=== PATIENT | male | born 1955 | race Caucasian/White ===

== ENCOUNTER 2021-07-28 10:55 | Outpatient (CLI) | payer OTHER, SELFPAY ==
--- NOTE | 2021-07-28 11:28 | CT_ITS ---
WS: [id number] CT ABDOMEN CONTRAST TECHNIQUE: Contrast enhanced CT of the abdomen with coronal and sagittal reformatted images. CLINICAL INFORMATION: LUQ ABDOMINAL PAIN COMPARISON: None. DLP: 940.[address] scans at [facility] use at least one of these dose optimization techniques: automated e xposure control; mA and/or kV adjustment per patient size (includes targeted exams where dose is matc hed to clinical indication); or iterative reconstruction. FINDINGS: Chronic emphysematous changes in the lung bases. Subsegmental atelectasis RIGHT lower lobe. A few sma ll nodules in RIGHT greater than LEFT lower lobe measuring 5 to 6 mm. Calcified granuloma RIGHT lower lobe. Numerous low-attenuation hepatic cysts within the liver the largest measuring 7-8mm. Normal po rtal vein and splenic vein. Normal GE junction. Normal spleen. Normal renal parenchymal enhancement. No hydronephrosis. LEFT upper pole renal cyst measuring 3.2 x 4.1 CM. Smaller RIGHT renal cyst. Celiac and SMA appear pa tent. Moderate aortic calcification. Slightly aneurysmal infrarenal abdominal aorta measuring 1.9 x 2 .1 cm AP by transverse. 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 Otherwise normal pancreatic parenchymal enhancement. Gallbladder is decompressed. Delayed images demonstrate normal proximal ureteral excretion. Proximal ureters are normal. Visualize d small bowel in the LEFT upper quadrant is normal in appearance. No other suspicious findings. Mild disc bulging L1-L2, L3-L4, L4-L5. Disc desiccation L5-S1. CT/CT abdomen w con* [id number] IMPRESSION: 1. Numerous small hepatic cysts within the liver the largest measuring 7 mm. 2. LEFT upper pole renal cyst measuring 4.1 x 3.2 CM. 3. Pancreatic calcifications likely due to chronic pancreatitis. Recommend cor relation with clinical history. 4. A few Small subcentimeter nodules in the lung bases the largest measuring 5 to 6 mm. This can be followed up with chest CT. 5. Moderate aortic calcification with slightly aneurysmal infrarenal abdominal aorta measuring 1.9 x 2.1 CM. 6. No other acute findings.
[2021-07-28] MEDS: iohexol 300 mg/mL 100 mL Btl IV (12:56)
[2021-07-28 13:00] LABS: Blood Urea Nitrogen 14 mg/dL (8-23); Glomerular Filtration Rate 112.5 mL/min (90-130)
== END 2021-07-28 10:56 | disposition home or self-care (01) ==
PROVIDERS: Visit Provider Nurse Practitioner Family
DX: R10.12 Left upper quadrant pain (principal); K76.89 Other specified diseases of liver; K86.89 Other specified diseases of pancreas; I71.4 Abdominal aortic aneurysm, without rupture
CPT/HCPCS: 74160; 82565; 84520

== ENCOUNTER 2022-01-18 15:45 | Emergency (ER) | payer SELFPAY ==
[2022-01-18] VITALS (15 sets, daily range): BP systolic 118–165; BP diastolic 72–96; PULSE 81–107; RESP 11–32; TEMP 36.8; O2SAT 88–97; BMI 15.5
--- NOTE | 2022-01-18 16:06 | ECG_ITS ---
[facility] Test Date: 2022-01-18 Pat Name: Chau Andrade Department: Room: Gender: Male [employer]: : [id number] Requested By: Donovan Phelps Order Number: [id number] Hayden MD: Caryn Plaza M.D. Measurements Intervals [place] Rate: 96 P: 89 RI: 143 QRS: -71 QRSD: 97 T: 95 QT: 338 QTc: 429 Interpretive Statements SINUS RHYTHM RIGHT ATRIAL ENLARGEMENT [0.3mV P-WAVE] POSSIBLE LEFT ATRIAL ENLARGEMENT [-0.1mV P-WAVE IN V1/V2] LEFT AXIS DEVIATION [QRS AXIS < -30] POSSIBLE RIGHT VENTRICULAR CONDUCTION DELAY [RSR (QR) IN V1/V2] ANTEROSEPTAL MYOCARDIAL INFARCTION , OF INDETERMINATE AGE [40+ ms Q WAVE IN V1-V4] No previous ECG available for comparison Electronically Signed On 01-18-2022 18:06:30 BREAD ROOM HAND by Caryn Plaza M.D. [id number]
--- NOTE | 2022-01-18 16:21 | XRR_ITS ---
PROCEDURE INFORMATION: Exam: XR Chest Exam date and time: 01/18/2022 5:28 PM Age: 67 years old Clinical indication: Cough and shortness of breath TECHNIQUE: Imaging protocol: Radiologic exam of the chest. Views: 1 view. COMPARISON: CT abdomen w con* [id number] 07/28/2021 12:49 PM FINDINGS: Lungs: Emphysema. Calcified granuloma in the left upper lobe. Minimal atelectasis or scarring in the lung bases. The lungs are otherwise clear. Pleural spaces: Unremarkable. No pleural effusion. No pneumothorax. Heart/Mediastinum: Unremarkable. No cardiomegaly. Bones/joints: Unremarkable. XR/XR chest 1V portable [id number] IMPRESSION: No acute findings.
--- NOTE | 2022-01-18 16:34 | W.ED.SOB ---
Documented by User: Cara Alejandro MD 01/18/22 17:45 HPI - SOB/Dyspnea General: Chief Complaint: Shortness of Breath/Dyspnea Stated Complaint: SOB Time Seen by Provider: 01/18/22 16:17 History of Present Illness: HPI Narrative: 59-year-old male who presents with shortness of breath. The patient states he was hospitalized in the past with pneumonia and subsequent to that hospitalization was placed on oxygen. He states he recently has not had his oxygen because his ex- refused to pay for it. He has had several days of increasing shortness of breath with associated wheezing. He has been using his albuterol inhaler occasionally with some improvement. He complains of shortness of breath as well as wheezing. He denies cough or fever. He denies leg swelling. Associated symptoms: Deny chest congestion, chest pain, fever(s) or vomiting Review of Systems Const: Denies: fever(s) or chills Eyes: Denies: change in vision ENMT: Denies: nasal discharge or nasal congestion Card: Denies: chest pain or swelling of feet/ankles Resp: Reports: dyspnea and wheezing; Denies: non-productive cough or chest congestion GI: Denies: vomiting or diarrhea Musc: Denies: extremity swelling Skin/Breast: Denies: rash Neuro: Denies: headache(s) Physical Exam Const: COMMON NORMALS: patient oriented x3 OTHER: Patient appears to be moderately short of breath. He is able to speak in full sentences. He is using his accessory muscles for breathing. HENMT: COMMON NORMALS: normocephalic, atraumatic and moist oral mucous membranes HEAD & SCALP: normocephalic and atraumatic Eye: COMMON NORMALS: Equal, round and reactive pupils present, EOMs intact bilaterally and no scleral icterus PUPIL: Yes Equal, round and reactive pupils present Neck/C-Spine: OTHER: Trachea midline Resp: OTHER: Patient is in moderate respiratory distress. He is using his accessory muscles to breathe. Decreased breath sounds in all lung garcia with diffuse expiratory wheezes. Cardio: OTHER: Tachycardic GI: OTHER: Abdomen is soft, nontender nondistended. Extremity: OTHER: There is no extremity edema or tenderness. Neuro: COMMON NORMALS: patient oriented x3 Skin: OTHER: No rash noted Course Reevaluation(s): Reevaluation #1: Patient is feeling much better after IV Solu-Medrol and the first nebulizer treatment. He does continue to have expiratory wheezes in the lung bases. We will repeat his nebulizer treatment and then try him on room air off oxygen. Chest x-ray shows no infiltrate. Laboratory studies are pending at this time. Vital Signs: Vital signs: Vital Signs Temperature 98.3 F 01/18/22 15:59 Pulse Rate 90 01/18/22 18:19 Respiratory Rate 20 H 01/18/22 18:19 Blood Pressure 118/79 01/18/22 18:15 Pulse Oximetry 91 01/18/22 18:19 Oxygen Delivery Me thod 01/18/22 18:19 Oxygen Flow Rate 2 01/18/22 18:19 MDM - SOB/Dyspnea Medical Decision Making 59-year-old male with a history of COPD who presents with a 2 to 3-day history of increasing shortness of breath with associated wheezing. The patient presents, short of breath, using his accessory muscles for breathing. Room air saturation 91%. We will start an IV, give him IV Solu-Medrol give him nebulizer treatments. Will obtain a chest x-ray and laboratory studies. Lab Data 01/18/22 16:42 01/18/22 17:10 Labs/Radiology: Radiology Impressions Chest X-Ray 01/18/22 16:21 IMPRESSION: No acute findings. Laboratory Results WBC 8.0 10^3/uL (4.0-10.0) 01/18/22 16:42 RBC 4.52 10^6/uL (4.1-5.3) 01/18/22 16:42 Hgb 14.5 g/dL (11.7-16.6) 01/18/22 16:42 Hct 44.4 % (42.0-52.0) 01/18/22 16:42 MCV 98.2 fl (80-94) H 01/18/22 16:42 MCH 32.1 pg (28.0-34.0) 01/18/22 16:42 MCHC 32.7 g/dL (30.0-36.0) 01/18/22 16:42 RDW 12.6 % (12.1-15.1) 01/18/22 16:42 Plt Count 277 10^3/cmm (130-400) 01/18/22 16:42 MPV 9.2 fL (7.4-10.4) 01/18/22 16:42 Neut % (Auto) 78.1 % 01/18/22 16:42 Lymph % (Auto) 8.6 % 01/18/22 16:42 [place] % (Auto) 6.5 % 01/18/22 16:42 Eos % (Auto) 5.5 % 01/18/22 16:42 Baso % (Auto) 0.9 % 01/18/22 16:42 Neut # (Auto) 6.24 10^3/uL (1.8-7.7) 01/18/22 16:42 Lymph # (Auto) 0.7 10^3/uL (0.8-4.8) L 01/18/22 16:42 [place] # (Auto) 0.5 10^3/uL (0.2-0.9) 01/18/22 16:42 Eos # (Auto) 0.4 10^3/uL (0.0-0.8) 01/18/22 16:42 Baso # (Auto) 0.1 10^3/uL (0.0-0.1) 01/18/22 16:42 Nucleated RBC % (auto) 0 % 01/18/22 16:42 Nucleated RBCs # 0.0 /100WBC 01/18/22 16:42 Sodium 141 mmol/L (136-145) 01/18/22 17:10 Potassium 3.9 mmol/L (3.5-5.1) 01/18/22 17:10 Chloride 100 mmol/L (98-107) 01/18/22 17:10 Carbon Dioxide 34 mmol/L (22-29) H 01/18/22 17:10 Anion Gap 10.9 (5-19) 01/18/22 17:10 BUN 16 mg/dL (8-23) 01/18/22 17:10 Creatinine 0.8 mg/dL (0.7-1.2) 01/18/22 17:10 GFR Calculation 96.1 mL/min (90-130) 01/18/22 17:10 Glucose 184 mg/dL (65-115) H 01/18/22 17:10 Calculated Osmolality 298 mOsm/kg (285-295) H 01/18/22 17:10 Calcium 9.0 mg/dL (8.5-10.5) 01/18/22 17:10 Total Bilirubin 0.2 mg/dL (0.15-1.2) 01/18/22 17:10 AST 11 U/L (0-40) 01/18/22 17:10 ALT < 5 U/L (0-41) 01/18/22 17:10 Alkaline Phosphatase 94 U/L (40-130) 01/18/22 17:10 NT-Pro-B Natriuret Pep 268 pg/mL (0-125) H 01/18/22 17:10 Total Protein 6.8 g/dL (6.6-8.7) 01/18/22 17:10 Albumin 3.9 g/dL (3.5-5.2) 01/18/22 17:10 Globulin 2.9 g/dL (1.3-4.6) 01/18/22 17:10 Nasal Influ A H1 2009 PCR Not detected (NOT DETECT) 01/18/22 16:42 Coronavirus 229E (PCR) Not detected (NOT DETECT) 01/18/22 16:42 Influenza A (H1) PCR Not detected (NOT DETECT) 01/18/22 16:42 Influenza A (H3) PCR Not detected (NOT DETECT) 01/18/22 16:42 Influenza Type A (PCR) Not detected (NOT DETECT) 01/18/22 16:42 Influenza Type B (PCR) Not detected (NOT DETECT) 01/18/22 16:42 SARS-CoV-2 (PCR) Not detected (NOT DETECT) 01/18/22 16:42 Discharge Plan Discharge Patient Disposition: Home Clinical Impression: Acute exacerbation of chronic obstructive airways disease Condition: Stable Prescriptions: New prednisone 50 mg tablet 50 mg PO DAILY 7 Days Qty: 7 0RF Symbicort 80-4.5 mcg/actuation HFA aerosol inhaler 1 puff inhalation BID Qty: 10.2 0RF ProAir HFA 90 mcg/actuation HFA aerosol inhaler 2 inh inhalation Q4H PRN (Reason: shortness of breath or wheezing) Qty: 8.5 0RF Rx Instructions: until breathing returns to target peak flow/parameters Discharge Orders: Discharge ED (Routine); Ordered 01/18/22 Ordered By: Everette Magallanes Other Ambulatory Orders: DME: Oxygen (Order) Location: None Selected Ordered By: Everette Magallanes Discharge Diet: Advance as tolerated Discharge Activity: Resume usual activity Patient Instructions: COPD (Chronic Obstructive Pulmonary Disease) (DC) Coding Level of Care Code ED Heel Boom Operator for Chg Fwd Exam Expanded Problem Focused Documented by User: Everette Magallanes MD 01/18/22 18:58 HPI - SOB/Dyspnea General: Chief Complaint: Shortness of Breath/Dyspnea Stated Complaint: SOB Time Seen by Provider: 01/18/22 16:17 Course Vital Signs: Vital signs: Vital Signs Temperature 98.3 F 01/18/22 15:59 Pulse Rate 90 01/18/22 18:19 Respiratory Rate 20 H 01/18/22 18:19 Blood Pressure 118/79 01/18/22 18:15 Pulse Oximetry 91 01/18/22 18:19 Oxygen Delivery Me thod 01/18/22 18:19 Oxygen Flow Rate 2 01/18/22 18:19 MDM - SOB/Dyspnea Medical Decision Making 59-year-old male with a history of COPD who presents with a 2 to 3-day history of increasing shortness of breath with associated wheezing. The patient presents, short of breath, using his accessory muscles for breathing. Room air saturation 91%. We will start an IV, give him IV Solu-Medrol give him nebulizer treatments. Will obtain a chest x-ray and laboratory studies. Patient presents for COPD exacerbation he supposed to be on 2 L of oxygen at home we will set him up with home oxygen again he is well-appearing here his oxygen is 96% here on 2 L x-ray shows no pneumonia his flu and COVID are negative he is stable for discharge. Lab Data 01/18/22 16:42 01/18/22 17:10 Labs/Radiology: Radiology Impressions Chest X-Ray 01/18/22 16:21
[2022-01-18] MEDS: ipratropium-albuterol 3 mL Neb INHALATION ×2 (16:49→18:15)
[2022-01-18 16:56] LABS: Basophils # 0.1 10^3/uL (0.0-0.1); Basophils % 0.9 %; Eosinophils # 0.4 10^3/uL (0.0-0.8); Eosinophils % 5.5 %; Hematocrit 44.4 % (42.0-52.0); Hemoglobin 14.5 g/dL (11.7-16.6); Lymphocytes # 0.7 10^3/uL (0.8-4.8); Lymphocytes % 8.6 %; Mean Corpuscular HGB Conc 32.7 g/dL (30.0-36.0); Mean Corpuscular Hemoglobin 32.1 pg (28.0-34.0); Mean Corpuscular Volume 98.2 fl (80-94); Mean Platelet Volume 9.2 fL (7.4-10.4); Monocytes # 0.5 10^3/uL (0.2-0.9); Monocytes % 6.5 %; Neutrophils # 6.24 10^3/uL (1.8-7.7); Neutrophils % 78.1 %; Nucleated Red Blood Cells % 0 %; Platelet Count 277 10^3/cmm (130-400); Red Blood Count 4.52 10^6/uL (4.1-5.3); Red Cell Distribution Width 12.6 % (12.1-15.1)
[2022-01-18 17:48] LABS: Alanine Aminotransferase < 5 U/L (0-41); Albumin Level 3.9 g/dL (3.5-5.2); Alkaline Phosphatase 94 U/L (40-130); Anion Gap 10.9 (5-19); Aspartate Amino Transferase 11 U/L (0-40); Blood Urea Nitrogen 16 mg/dL (8-23); Carbon Dioxide 34 mmol/L (22-29); Chloride 100 mmol/L (98-107); Globulin 2.9 g/dL (1.3-4.6); Glomerular Filtration Rate 96.1 mL/min (90-130); Glucose 184 mg/dL (65-115); NT Pro B Type Natriuretic Pept 268 pg/mL (0-125); Osmolality Calculated 298 mOsm/kg (285-295); Potassium 3.9 mmol/L (3.5-5.1); Sodium 141 mmol/L (136-145); Total Bilirubin 0.2 mg/dL (0.15-1.2); Total Protein 6.8 g/dL (6.6-8.7)
[2022-01-18 18:41] LABS: Adenovirus Not Detected (NOT DETECT); Chlamydia Pneumoniae Not Detected (NOT DETECT); Coronavirus 229E,HKU1,NL63,OC4 Not Detected (NOT DETECT); Human Metapneumovirus Not Detected (NOT DETECT); Human Rhinovirus/Enterovirus Not Detected (NOT DETECT); Influenza A Not Detected (NOT DETECT); Influenza A H1 Not Detected (NOT DETECT); Influenza A H1-2009 Not Detected (NOT DETECT); Influenza A H3 Not Detected (NOT DETECT); Influenza B Not Detected (NOT DETECT); Mycoplasma Pneumoniae Not Detected (NOT DETECT); Parainfluenza Virus Type 1 Not Detected (NOT DETECT); Parainfluenza Virus Type 2 Not Detected (NOT DETECT); Parainfluenza Virus Type 3 Not Detected (NOT DETECT); Parainfluenza Virus Type 4 Not Detected (NOT DETECT); Respiratory Syncytial Virus A Not Detected (NOT DETECT); Respiratory Syncytial Virus B Not Detected (NOT DETECT); SARS-COV-2 Not Detected (NOT DETECT)
--- NOTE | 2022-01-18 18:44 | PC.NURSE ---
report given to JUDSON Tatum to assume care
[2022-01-18 18:52] LABS: Influenza A Not Detected (NOT DETECT); Influenza A H1 Not Detected (NOT DETECT); Influenza A H1-2009 Not Detected (NOT DETECT); Influenza A H3 Not Detected (NOT DETECT); Influenza B Not Detected (NOT DETECT); Results from GEN
== END 2022-01-18 20:15 | disposition home or self-care (01) ==
PROVIDERS: Emergency Medicine; Emergency Provider Emergency Medicine
DX: J44.1 Chronic obstructive pulmonary disease with (acute) exacerbation (principal); Z91.190 Patient's noncompliance with other medical treatment and regimen due to financial hardship
CPT/HCPCS: 71045; 80053; 83880; 85025; 87631; 87635; 93005; 94640; 96374; 99285; J2930